=== PATIENT | female | born 1975 | race Caucasian/White ===

== ENCOUNTER → 2016-12-17 | Outpatient (CLI) | payer OTHER | END | disposition home or self-care (01) | LOC: LABWHC1 11:50 | PROVIDERS: ATTEND Obstetrics & Gynecology | DX: E28.2 Polycystic ovarian syndrome (principal) | CPT/HCPCS: 36415; 83001; 84439; 84443 ==

== ENCOUNTER → 2017-01-11 | Outpatient (CLI) | payer OTHER ==
--- NOTE | 2017-01-11 15:15 | FL ---
EXAMINATION TYPE: FL hysterosalpingography DATE OF EXAM: 01/11/2017 COMPARISON: CT abdomen and pelvis June 29, 2013 HISTORY: Infertility for 2 years. TECHNIQUE: Fluoroscopic assisted hysterosalpingogram. A total of 10 cc of Omnipaque 240 was utilized. 3 minutes of fluoroscopic time was utilized during procedure. 9 spot images were saved to PACS [email or web address] during procedure. FINDINGS: Preprocedure cover cutter image shows left-sided pelvic phlebolith inferiorly. Procedure was expla ined to patient. Benefits, alternatives, and risks were discussed. Using sterile technique speculum was inserted. Several attempts to pass catheter into cervix were ini tially unsuccessful as there is retroflexed or positioning of the cervical os. Finally cervical os is visualized after several attempts at repositioning. Cervical os was cleansed with Betadine. Catheter is inserted. Balloon is inflated. Under fluoroscopic guidance, contrast was instilled into the endometrial canal. Endometrium shows satisfactory opacific ation with slightly lobulated contour. Some leak of contrast into cervix is present. There is satisfa ctory visualization of bilateral fallopian tubes which appear within normal limits and eventual bilat eral spilling. At this point the balloon is deflated and catheter is withdrawn. Speculum was removed. Patient tolerated procedure well without any immediate complication. The patient was kept in the radi ology department for short stay after the procedure and then discharged home in stable condition. IMPRESSION: Successful, uncomplicated fluoroscopic assisted hysterosalpingogram. Bilateral tubal brooks ncy is documented.
--- NOTE | 2017-01-12 10:37 | MM ---
Reason for exam: screening (asymptomatic). Last mammogram was performed 2 years and 3 months ago. History: Patient is nulliparous. Benign excisional biopsy of the left breast, 2005. Taking progesterone for 6 years beginning at age 35. Physical Findings: A clinical breast exam by your physician is recommended on an annual basis and results should be correlated with mammographic findings. MG Screening Mammo w CAD Bilateral CC and MLO view(s) were taken. Prior study comparison: September 26, 2014, bilateral MG screening mammo w CAD. August 14, 2013, bilateral MG screening mammo w CAD. There are scattered fibroglandular densities. No significant changes when compared with prior studies. ASSESSMENT: Benign, BI-RAD 2 RECOMMENDATION: Routine screening mammogram of both breasts in 1 year.
== END | disposition home or self-care (01) ==
LOC: RADFLMAIN 13:18
PROVIDERS: ATTEND Obstetrics & Gynecology
DX: Z12.31 Encounter for screening mammogram for malignant neoplasm of breast (principal); N97.8 Female infertility of other origin
CPT/HCPCS: 58340; 74740; G0202; Q9966

== ENCOUNTER → 2017-05-03 | Outpatient (CLI) | payer OTHER ==
[2017-05-03 09:37] VITALS: BMI 48.8
== END | disposition home or self-care (01) ==
LOC: MNTWWP 09:10
PROVIDERS: ATTEND Internal Medicine Hematology & Oncology
DX: E66.3 Overweight (principal); Z68.42 Body mass index [BMI] 45.0-49.9, adult
CPT/HCPCS: 97802

== ENCOUNTER → 2017-06-14 | Outpatient (CLI) | payer OTHER ==
--- NOTE | 2017-06-14 16:40 | CONS ---
CONSULTATION REASON FOR EVALUATION: Sleep apnea. A 41-year-old female patient, obese who has gained about 30 pounds over the past 1 year as the patient has become more sedentary and less active. She used to live in [place], [place]. Currently she is in the [facility]. She has been working in [employer]. She is feeling tired and sleepy during the day. She snores at night. She is not sure if she quits any breathing or has any apneic episodes. No nocturia. She wakes up with dry mouth and she has occasional heartburn at nighttime. She goes to bed between 9:30 pm and 11:00 pm wakes up 6:30 am in the morning. The patient has been averaging around 6-7 hours of sleep. During the day she feels tired. She never got to the point where she would fall asleep while driving her car. No sleep paralysis. No hallucinations. No cataplexy. She admits to have had sleepiness or veered off the road while driving in the past 6 months and this is mainly when she was doing long distance driving between [place] and [facility]. As mentioned, no history of any motor vehicle accident. Otherwise no history of sleepwalking or sleep talking. No restlessness in lower extremities. No issues with chronic pain. No issues with chest pain or palpitations especially at nighttime. PAST MEDICAL HISTORY: Obesity, bronchial asthma, history of iron deficiency maintained on IV iron and history of anemia, degenerative arthritis. SURGICAL HISTORY: Includes cholecystectomy, tonsillectomy, appendectomy. DRUG ALLERGIES: Not known. Mainly seasonal allergies. OUTPATIENT MEDICATIONS: Include Lomotil, ProAir, Tylenol and omeprazole. SOCIAL HISTORY: The patient is a nonsmoker. No history of alcohol. No history of IV drugs. She drinks around 2-3 cups of coffee a day. FAMILY HISTORY: Negative for sleep apnea. REVIEW OF SYSTEMS: 12-point review of system was done. Positive findings are mentioned above in the history of present illness. Of significance is the absence of any anxiety or panic attacks. No depression, no palpitation. Occasional nocturnal heartburn. No depression. No claustrophobia. She is a nose breather. No falls, no trauma. No headaches in the morning. No cough or sputum production. No altered mentation. PHYSICAL EXAMINATION: BP is 134/84, pulse 89, respirations 16, temperature is 98.6, saturation 99% on room air. Grand Cane score is 5, weight is 254, height is 61 inches. Neck size is 16. BMI is 47.9. GENERAL APPEARANCE: Calm, comfortable. Head is normocephalic, atraumatic. Neck is short, yet supple and as mentioned Mallampati class II. No overbite, no micrognathia, no macroglossia. LUNGS: Clear to auscultation. HEART: Sounds regular rhythm. Normal S1, S2. No S3. No murmurs. ABDOMEN: Soft, nontender. No organomegaly. EXTREMITIES: No edema. No cyanosis or clubbing. NEUROLOGIC: The patient awake x3. No focal neurological deficit. PSYCHIATRIC: Negative for anxiety or depression. SKIN: Negative for any wounds or ulceration or cellulitis. IMPRESSION: 1. Obstructive sleep apnea clinically suspected, under investigation. 2. Chronic fatigue and sleepiness. Grand Cane score is at 5. 3. Loud snoring. 4. Obesity, BMI of 47.9, with an interval 30 pounds weight gain over the past 1 year. 5. Bronchial asthma. 6. Iron-deficiency anemia. 7. Degenerative arthritis. PLAN: 1. Encourage weight loss. 2. Patient carries good sleep hygiene measures. 3. Avoid driving especially when feeling drowsy or sleepy. 4. Proceed with a screening polysomnogram to assess for the presence of any form of sleep breathing disorder. We will treat the patient accordingly. MMODL / IJN: [id number] /
== END | disposition home or self-care (01) ==
LOC: SLEEP 14:04
PROVIDERS: ATTEND Internal Medicine Critical Care Medicine
DX: G47.8 Other sleep disorders (principal); R06.83 Snoring; R53.83 Other fatigue; E66.01 Morbid (severe) obesity due to excess calories; J45.901 Unspecified asthma with (acute) exacerbation; D50.9 Iron deficiency anemia, unspecified; M19.90 Unspecified osteoarthritis, unspecified site; J30.2 Other seasonal allergic rhinitis; Z79.899 Other long term (current) drug therapy; Z68.42 Body mass index [BMI] 45.0-49.9, adult
CPT/HCPCS: 99211

== ENCOUNTER → 2017-09-23 | Outpatient (CLI) | payer OTHER ==
--- NOTE | 2017-09-24 21:53 | CT ---
EXAMINATION TYPE: CT chest w con DATE OF EXAM: 09/23/2017 COMPARISON: NONE HISTORY: No chest complaints at time of service. Solitary pulmonary nodule. CT DLP: 439.1 mGycm. Automated Exposure Control for Dose Reduction was Utilized. TECHNIQUE: CT scan of the thorax is performed following with IV Contrast, patient injected with 100 mL of Isovue 300. FINDINGS: LUNGS: There is a 4 mm solid pulmonary nodule within the right upper lobe medially abutting the media stinum on series 4 image 28. Additionally within the right lung base there is a solid 1.4 cm well-cir cumscribed pulmonary nodule. No significant macroscopic fat is seen within this nodule. A 2 mm pulmon giuseppe nodule within the lingula is seen on series 4 image 40. No focal consolidation or pulmonary vascu lar congestion. There is no pleural effusion or pneumothorax seen. The tracheobronchial tree is pa tent. MEDIASTINUM: Within the superior anterior mediastinum there is an elongated opacity with more patchy opacity at its inferior margin favored to represent residual thymic tissue with adenopathy less likel y. No other evidence for enlarged mediastinal lymph node. No pericardial effusion is seen. Ascending thoracic aorta and main pulmonary artery are within normal limits of size. OTHER: Spleen is upper limits of normal measuring 13.3 cm in anterior posterior dimension. Gallbladde r surgically absent. Mild multilevel degenerative changes of the thoracic spine are present. IMPRESSION: 1. Bilateral pulmonary nodules with the largest measuring 1.4 cm in the right lower lobe. Given its s ize and lack of priors for comparison of stability. CT is recommended to ensure this is not hypermeta bolic although morphology favors more benign etiologies. 2. Soft tissue density of the superior anterior mediastinum favored to represent residual thymus alth ough this could also be evaluated with PET/CT. 3. Upper limits of normal size of the spleen.
== END | disposition home or self-care (01) ==
LOC: RADCTMAIN 16:17
PROVIDERS: ATTEND Family Medicine
DX: R91.8 Other nonspecific abnormal finding of lung field (principal); R93.8 Abnormal findings on diagnostic imaging of other specified body structures
CPT/HCPCS: 71260; Q9967

== ENCOUNTER → 2017-10-22 | Outpatient (CLI) | payer OTHER ==
--- NOTE | 2017-10-23 09:36 | PE ---
EXAMINATION TYPE: PET CT fusion skull to thigh DATE OF EXAM: 10/22/2017 COMPARISON: CT chest 09/23/2017 Prior PET/CT: None HISTORY: Solitary pulmonary nodule TECHNIQUE: Following the intravenous administration of 9.4 mCi of F-18 FDG, whole body images are pe rformed from the skull base to the midthigh. Images are reviewed on the computer in the coronal, axi al, and sagittal planes. Reconstructed rotating images are created on independent workstation and re viewed on the computer. A localization and attenuation correction CT is performed in conjunction wi th the PET scan. DLP: 412.27 mGycm SCAN: Initial Scan Blood glucose: 89 mg/dL Average Mediastinum SUV: 1.51 Average Liver SUV: 2.33 FINDINGS: NECK: There is some intense radiotracer accumulation within the left tonsillar pillar extending to j ust above the hyoid bone. Recommend direct visualization. THORAX: The nodule within the right lower lobe has an SUV value of 0.8. No significant uptake is evid ent. This is likely benign ABDOMEN: No abnormal uptake PELVIS: No abnormal uptake OSSEOUS STRUCTURES: There is increased radiotracer accumulation within vertebral bodies which is nons pecific. Intensity is in the range of 3 SUV. This may be focal changes, metastasis is not excluded. T here are additional scattered areas of uptake such as within the medial iliac wings within the sacrum , within the lumbar vertebral levels. Consider bone scan correlation. LOCALIZATION CT: A 1.3 cm nodule in the medial right lower lobe. CT is otherwise felt to be noncontri butory. Osseous structures appear unremarkable on CT examination. Note is made of some mild facet deg enerative changes lower lumbar spine. Suspicious lytic areas to correspond to the areas of uptake are not evident. COMPARISON: Lung nodule appears stable. No significant interval changes evident IMPRESSION: 1. Solitary pulmonary nodule without significant uptake can be compatible with a benign process. 2. Note is made of diffuse scattered areas of increased uptake within osseous structures. Metastasis without a primary site identification would be unlikely. Consider correlation with bone scan.
== END | disposition home or self-care (01) ==
LOC: RADPETMAIN 15:30
PROVIDERS: ATTEND Family Medicine
DX: R91.1 Solitary pulmonary nodule (principal)
CPT/HCPCS: 78815; A9552

== ENCOUNTER → 2017-11-01 | Outpatient (CLI) | payer OTHER ==
--- NOTE | 2017-11-01 18:22 | PN ---
PROGRESS NOTE Linda is 42, coming in for a discussion regarding her sleep apnea. The patient was suspected to have obstructive sleep apnea and she underwent a screening polysomnogram and she was found to have mild nonspecific BERT with an AHI of 5.1. I decided not to treat the patient. She decided to go with conservative weight watch. Since her last evaluation, the patient has been doing well. She has managed to lose about 25 pounds while was using [employer]. She is at the point where she is not having any sleepiness or tiredness during the day. She is able to drive long distances and she does not fall asleep while driving. Her iron levels have also improved, as the patient is being treated for iron-deficiency anemia by Dr. Hamm. Her Delmont score is down to 3. Her snoring has subsided. She is sleeping on her side. She is following very good sleep hygiene measures, as the patient is sleeping around 7 hours per night. PHYSICAL EXAMINATION: BP is 108/68, pulse 76, respirations 16, temperature 98.3. Saturation is 98% on room air. GENERAL APPEARANCE: Calm, comfortable. Head is atraumatic, normocephalic. Neck is short, supple. Crowding of the posterior pharynx. No goiter or neck masses. LUNGS: Clear to auscultation. HEART: Sounds are regular rate and rhythm. Normal S1, S2. No S3, S4. No murmurs. ABDOMEN: Soft, nontender. No organomegaly. EXTREMITIES: No edema. No cyanosis or clubbing. IMPRESSION: 1. Mild REM-specific obstructive sleep apnea with an AHI of 5.1. The patient is completely asymptomatic at this point, as the patient has lost around 25 pounds. 2. Iron deficiency anemia, treated. PLAN: 1. Continue losing more weight. 2. The patient has good sleep hygiene measures. 3. Clinically asymptomatic; there is no need for CPAP therapy at this point in time. MMODL / IJN: [id number] /
== END | disposition home or self-care (01) ==
LOC: SLEEP 16:34
PROVIDERS: ATTEND Internal Medicine Critical Care Medicine
DX: G47.33 Obstructive sleep apnea (adult) (pediatric) (principal); D50.9 Iron deficiency anemia, unspecified

== ENCOUNTER 2017-12-01 13:48 | Emergency (ER) | payer OTHER ==
[2017-12-01] MEDS ORDERED: SODIUM CHLORIDE 0.9% 500 ML IV STA (14:14)
[2017-12-01] MEDS ORDERED: KETOROLAC 30 MG/ML 1 ML VIAL IVP STA (14:14)
--- NOTE | 2017-12-01 14:20 | ED ---
General Adult HPI - General Chief complaint: Abdominal Pain Stated complaint: pain under ribs & back-sent by Time Seen by Provider: 12/01/17 13:50 Source: patient, RN notes reviewed Mode of arrival: ambulatory Limitations: no limitations - History of Present Illness Initial comments: This is a 42-year-old female presents emergency Department complaining of abdominal pain for 2 weeks. Patient states it started in her back just below her shoulder blades and now radiates under her ribs in the right upper quadrant. Patient states she has had a cholecystectomy and appendectomy. Patient denies any fever chills or cough. Patient denies any nausea vomiting but states she has had some episodes of diarrhea. Patient denies dysuria hematuria urinary frequency. Patient denies any lower abdominal pain. Patient denies any injury or trauma. Patient states the area is much worse now in the front and the back. Patient denies any shortness of breath or chest pain. However the patient states when she takes a deep breath it seems to make the pain a little worse. Patient denies any lightheadedness dizziness or near syncopal episode. - Related Data Home Medications Medication Instructions Recorded Confirmed Acetaminophen-Codeine 300-30mg 1 tab PO Q8H PRN 04/28/17 12/01/17 [Tylenol #3] Albuterol Sulfate [Proair Hfa] 1 - 2 puff INHALATION Q6HR PRN 04/28/17 12/01/17 Diphenox-Atrop 2.5-0.025 mg 2 tab PO QID PRN 04/28/17 12/01/17 [Lomotil] Omeprazole 40 mg PO DAILY 04/28/17 12/01/17 Buspar (Unknown Dose) 1 tab PO DAILY 12/01/17 12/01/17 Ibuprofen [Motrin Ib] 600 mg PO Q6H PRN 12/01/17 12/01/17 Allergies Allergy/AdvReac Type Severity Reaction Status Date / Time No Known Allergies Allergy Verified 12/01/17 14:15 Review of Systems ROS Statement: Those systems with pertinent positive or pertinent negative responses have been documented in the HPI. ROS Other: All systems not noted in ROS Statement are negative. Past Medical History Past Medical History: Asthma, GERD/Reflux Additional Past Medical History / Comment(s): colitis History of Any Multi-Drug Resistant Organisms: None Reported Past Surgical History: Appendectomy, Cholecystectomy, Tonsillectomy Past Psychological History: Anxiety Smoking Status: Never smoker Past Alcohol Use History: None Reported Past Drug Use History: None Reported General Exam - General Exam Comments Initial Comments: GENERAL: Patient is well-developed and well-nourished. Patient is nontoxic and well- hydrated and is in mild distress. ENT: Neck is soft and supple. No significant lymphadenopathy is noted. Oropharynx is clear. Moist mucous membranes. Neck has full range of motion without eliciting any pain. EYES: The sclera were anicteric and conjunctiva were pink and moist. Extraocular movements were intact and pupils were equal round and reactive to light. Eyelids were unremarkable. PULMONARY: Unlabored respirations. Good breath sounds bilaterally. No audible rales rhonchi or wheezing was noted. CARDIOVASCULAR: There is a regular rate and rhythm without any murmurs gallops or rubs. ABDOMEN: Mild right upper quadrant tenderness. No palpable organomegaly was noted. There is no palpable pulsatile mass. SKIN: Skin is clear with no lesions or rashes and otherwise unremarkable. NEUROLOGIC: Patient is alert and oriented x3. Cranial nerves II through XII are grossly intact. Motor and sensory are also intact. Normal speech, volume and content. Symmetrical smile. MUSCULOSKELETAL: Normal extremities with adequate strength and full range of motion. No lower extremity swelling or edema. No calf tenderness. LYMPHATICS: No significant lymphadenopathy is noted PSYCHIATRIC: Normal psychiatric evaluation. Normal interpersonal interactions appears functionally intact in deals appropriately with others. No signs of depression. No signs of anxiety. Limitations: no limitations Course Vital Signs 12/01/17 13:51 Temperature 98.2 F Pulse Rate 79 Respiratory 20 Rate Blood Pressure 130/87 O2 Sat by Pulse 99 Oximetry Medical Decision Making - Medical Decision Making I went back into reevaluate the patient she stated that the Toradol I gave her made her feel better. Patient states also when her rubs on her back does feel much better. Patient states she can follow-up with Paul Grossman - Lab Data Result diagrams: 12/01/17 14:30 12/01/17 14:30 Lab Results 12/01/17 12/01/17 12/01/17 Range/Units 14:30 14:30 14:30 WBC 13.7 H (3.8-10.6) k/uL RBC 5.72 H (3.80-5.40) m/uL Hgb 15.7 (11.4-16.0) gm/dL Hct 50.1 H (34.0-46.0) % MCV 87.6 (80.0-100.0) fL MCH 27.5 (25.0-35.0) pg MCHC 31.3 (31.0-37.0) g/dL RDW 13.3 (11.5-15.5) % Plt Count 227 (150-450) k/uL Neutrophils % 56 % Lymphocytes % 36 % Monocytes % 5 % Eosinophils % 1 % Basophils % 1 % Neutrophils # 7.6 (1.3-7.7) k/uL Lymphocytes # 4.9 H (1.0-4.8) k/uL Monocytes # 0.7 (0-1.0) k/uL Eosinophils # 0.1 (0-0.7) k/uL Basophils # 0.1 (0-0.2) k/uL Sodium 140 (137-145) mmol/L Potassium 3.9 (3.5-5.1) mmol/L Chloride 100 (98-107) mmol/L Carbon Dioxide 30 (22-30) mmol/L Anion Gap 10 mmol/L BUN 16 (7-17) mg/dL Creatinine 0.88 (0.52-1.04) mg/dL Est GFR (CKD-EPI)AfAm >90 (>60 ml/min/1.73 sqM) Est GFR (CKD-EPI)NonAf 82 (>60 ml/min/1.73 sqM) Glucose 82 (74-99) mg/dL Calcium 9.8 (8.4-10.2) mg/dL Total Bilirubin 0.5 (0.2-1.3) mg/dL AST 42 H (14-36) U/L ALT 46 (9-52) U/L Alkaline Phosphatase 67 (38-126) U/L Total Protein 8.0 (6.3-8.2) g/dL Albumin 4.5 (3.5-5.0) g/dL Amylase 67 (30-110) U/L Lipase 152 (23-300) U/L Urine Color Colorless Urine Appearance Clear (Clear) Urine pH 6.5 (5.0-8.0) Ur Specific Shelburn 1.001 (1.001-1.035) Urine Protein Negative (Negative) Urine Glucose (UA) Negative (Negative) Urine Ketones Negative (Negative) Urine Blood Negative (Negative) Urine Nitrite Negative (Negative) Urine Bilirubin Negative (Negative) Urine Urobilinogen <2.0 (<2.0) mg/dL Ur Leukocyte Esterase Negative (Negative) Disposition Clinical Impression: Abdominal pain Disposition: HOME SELF-CARE Instructions: Abdominal Pain (ED) Is patient prescribed a controlled substance at d/c from ED?: No Referrals: Gerry Grossman MD [Primary Care Provider] - 1-2 days Time of Disposition: 15:33
[2017-12-01 14:45] LABS: Appearance,Urine Clear (Clear); Bilirubin,Urine Negative (Negative); Blood,Urine Negative (Negative); Color,Urine Colorless; Glucose,Urine (UA) Negative (Negative); Ketones,Urine Negative (Negative); Leukocyte Esterase,Urine Negative (Negative); Nitrite,Urine Negative (Negative); PH, Urine 6.5 (5.0-8.0); Protein,Urine Negative (Negative); Specific Gravity,Urine 1.001 (1.001-1.035); Urobilinogen,Urine <2.0 mg/dL (<2.0)
[2017-12-01 14:46] LABS: Basophils # (A) 0.1 k/uL (0-0.2); Basophils % (A) 1 %; Eosinophils # (A) 0.1 k/uL (0-0.7); Eosinophils % (A) 1 %; HCT 50.1 % (34.0-46.0); HGB 15.7 gm/dL (11.4-16.0); Lymphocytes # (A) 4.9 k/uL (1.0-4.8); Lymphocytes % (A) 36 %; MCH 27.5 pg (25.0-35.0); MCHC 31.3 g/dL (31.0-37.0); MCV 87.6 fL (80.0-100.0); Mean Platelet Volume 6.8; Monocytes # (A) 0.7 k/uL (0-1.0); Monocytes % (A) 5 %; Neutrophils # (A) 7.6 k/uL (1.3-7.7); Neutrophils % (A) 56 %; Platelet Count 227 k/uL (150-450); RBC 5.72 m/uL (3.80-5.40); RDW 13.3 % (11.5-15.5); WBC 13.7 k/uL (3.8-10.6)
[2017-12-01 14:54] LABS: ALT 46 U/L (9-52); AST 42 U/L (14-36); Albumin 4.5 g/dL (3.5-5.0); Alkaline Phosphatase 67 U/L (38-126); Amylase 67 U/L (30-110); Anion Gap 10 mmol/L; Blood Urea Nitrogen 16 mg/dL (7-17); Calcium 9.8 mg/dL (8.4-10.2); Carbon Dioxide 30 mmol/L (22-30); Chloride 100 mmol/L (98-107); Glucose 82 mg/dL (74-99); Lipase 152 U/L (23-300); Potassium 3.9 mmol/L (3.5-5.1); Sodium 140 mmol/L (137-145); Total Bilirubin 0.5 mg/dL (0.2-1.3)
--- NOTE | 2017-12-01 15:06 | XR ---
EXAMINATION TYPE: XR KUB DATE OF EXAM: 12/01/2017 2:59 PM CLINICAL HISTORY: Right-sided pain with nausea and diarrhea. TECHNIQUE: Two Upright KUB images of the abdomen are obtained. COMPARISON: CT abdomen and pelvis June 29, 2013. FINDINGS: Scattered gas is seen in non-distended stomach and small bowel loops. Gas is seen in non-di stended colon. Cholecystectomy clips are present. No pneumoperitoneum is seen. Lung bases are clear. IMPRESSION: Overall nonobstructive bowel gas pattern.
[2017-12-01 15:43] VITALS: BP 129/65; PULSE 68; RESP 18; TEMP 97.5
== END 2017-12-01 15:41 | disposition home or self-care (01) ==
LOC: EC 13:48
DX: R10.11 Right upper quadrant pain (principal); M54.6 Pain in thoracic spine; R19.7 Diarrhea, unspecified; J45.909 Unspecified asthma, uncomplicated; K21.9 Gastro-esophageal reflux disease without esophagitis; F41.9 Anxiety disorder, unspecified; Z79.899 Other long term (current) drug therapy; Z90.49 Acquired absence of other specified parts of digestive tract
CPT/HCPCS: 99284; 96374; 36415; 80053; 82150; 83690; 85025; 81003; 74018; J1885

== ENCOUNTER → 2018-03-27 | Outpatient (CLI) | payer OTHER ==
--- NOTE | 2018-04-02 10:31 | MM ---
Reason for exam: screening (asymptomatic). Last mammogram was performed 1 year and 2 months ago. History: Patient is nulliparous. Benign excisional biopsy of the left breast, 2005. Taking progesterone for 7 years beginning at age 35. MG Screening Mammo w CAD Bilateral CC and MLO view(s) were taken. Prior study comparison: January 11, 2017, bilateral MG screening mammo w CAD. September 26, 2014, bilateral MG screening mammo w CAD. There are scattered fibroglandular densities. No significant changes when compared with prior studies. ASSESSMENT: Negative, BI-RAD 1 RECOMMENDATION: Routine screening mammogram of both breasts in 1 year.
== END | disposition home or self-care (01) ==
LOC: RADMAMWWP 16:22
PROVIDERS: ATTEND Obstetrics & Gynecology
DX: Z12.31 Encounter for screening mammogram for malignant neoplasm of breast (principal)
CPT/HCPCS: 77067

== ENCOUNTER → 2019-02-08 | Outpatient (CLI) | payer OTHER ==
--- NOTE | 2019-02-08 17:11 | US ---
EXAMINATION TYPE: US OB <= 14 wks transvag DATE OF EXAM: 02/08/2019 4:38 PM COMPARISON: NONE CLINICAL HISTORY: O00.1 Ectopic . Irregular periods HCG 111 on 02/05 2- EXAM PERFORMED: Transvaginal (TV) and Transabdominal (TA) EXAM MEASUREMENTS: GESTATIONAL AGE / DATING Physician Established: not established Dates by LMP: (9 weeks/4 days) EDC: 09/09/19 MATERNAL ANATOMY Uterus: 8.3 x 4.9 x 5.2 cm small nabothian cysts 0.9 x 0.7 x 0.8 cm, 0.6 x 0.9 x x0.5 cm Right Ovary: 2.7 x 1.6 x 2.2 Left Ovary: 2.7 x 1.9 x 2.8 Post CDS / Adnexa: wnl Presence of free fluid: no Presence of corpus luteal cyst: no Presence of subchorionic bleed: no GESTATION / SURVEY MSD: 1.1 x 0.3 x 0.2 cm) to small for EDC. Date of LMP: 12/03 2018 Beta HcG (if available): 111 IMPRESSION: There is appears to be tiny intrauterine gestational sac. Follow-up recommended in 14 days to confirm a living fetus. No adnexal mass. MTDD
== END ==
LOC: RADUSWWP 15:41
PROVIDERS: ATTEND Obstetrics & Gynecology
DX: R10.2 Pelvic and perineal pain (principal)
CPT/HCPCS: 36415; 76801; 76817; 84702; 86850; 86900; 86901

== ENCOUNTER → 2019-02-10 | Outpatient (CLI) | payer OTHER ==
[2019-02-10 11:47] LABS: HCT 45.2 % (34.0-46.0); HGB 14.3 gm/dL (11.4-16.0); MCH 28.5 pg (25.0-35.0); MCHC 31.6 g/dL (31.0-37.0); MCV 90.1 fL (80.0-100.0); Mean Platelet Volume 6.6; Platelet Count 234 k/uL (150-450); RBC 5.02 m/uL (3.80-5.40); WBC 10.2 k/uL (3.8-10.6)
[2019-02-10 11:49] LABS: Appearance,Urine Cloudy (Clear); Bilirubin,Urine Negative (Negative); Blood,Urine Negative (Negative); Color,Urine Light Yellow; Glucose,Urine (UA) Negative (Negative); Ketones,Urine Negative (Negative); Leukocyte Esterase,Urine Negative (Negative); Nitrite,Urine Negative (Negative); Protein,Urine Negative (Negative); RBC,Urine 3 /hpf (0-5); Specific Gravity,Urine 1.004 (1.001-1.035); Squamous Epithelial Cell,Urine 1 /hpf (0-4); Urobilinogen,Urine <2.0 mg/dL (<2.0); WBC,Urine 1 /hpf (0-5)
[2019-02-10 16:46] LABS: % Iron Saturation 27.41 (12.00-45.00); African American GFR (CKD) 105.4 (60.0-200.0); Albumin 4.4 g/dL (3.80-4.90); Albumin/Globulin Ratio 2.2 (1.60-3.17); Anion Gap 7.4 mmol/L (4.00-12.00); BUN/Creat Ratio 7.5 Ratio (12.00-20.00); Calcium 9.9 mg/dL (8.7-10.3); Carbon Dioxide 28.6 mmol/L (21.6-31.8); Chol/HDL Ratio 5.35; LDL Cholesterol,Calculated 142.2 mg/dL (0.0-131.0); Non-African American GFR(CKD) 90.9 (60.0-200.0); Potassium 4.4 mmol/L (3.5-5.5); Total Bilirubin 0.3 mg/dL (0.2-1.2); Total Protein 6.4 g/dL (6.2-8.2); VLDL Calculation 31.8 mg/dL (5.00-40.00)
[2019-02-10 16:55] LABS: HCG,Quantitative Serum 251.6 mIU/mL
[2019-02-10 17:01] LABS: Ferritin 343.3 ng/mL (10.0-291.0)
== END | disposition home or self-care (01) ==
LOC: LABWHC1 11:12
PROVIDERS: ATTEND Family Medicine
DX: Z00.00 Encounter for general adult medical examination without abnormal findings (principal); D50.9 Iron deficiency anemia, unspecified
CPT/HCPCS: 36415; 80053; 80061; 81001; 82607; 82728; 82747; 83540; 83550; 84702; 85027

== ENCOUNTER 2019-02-19 10:24 | Emergency (ER) | payer OTHER ==
[2019-02-19 10:39] VITALS: TEMP 98.1
--- NOTE | 2019-02-19 10:56 | ED ---
Female Urogenital HPI - General Chief complaint: Vaginal Bleeding Stated complaint: 6 wks preg/vaginal bleeding Time Seen by Provider: 02/19/19 10:41 Source: patient Mode of arrival: ambulatory Limitations: no limitations - History of Present Illness Initial comments: Patient is a 43-year-old female presenting to the emergency Department with complaints of vaginal bleeding and cramping that started early this morning. Patient states she is approximately 6 weeks . Patient is . Patient's SHIP CAPTAIN is Dr. Viera. Patient states for the last 2 days she's had some brownish spotting but then this morning the spotting has increased and it is now bright red and clotting. Patient is also having some increase in her abdominal cramping. Patient does admit to nausea but she has been nauseous for the last few weeks. Patient denies fever, chills, vomiting. Patient states she had an ultrasound performed 2 weeks ago because they thought she might be ectopic . Ectopic was ruled out however too early to identify a live IUP. Patient has no other complaints at this time. Upon arrival to the ER, vital signs are stable. - Related Data Home Medications Medication Instructions Recorded Confirmed Acetaminophen-Codeine 300-30mg 1 tab PO Q8H PRN 04/28/17 12/21/18 [Tylenol #3] Albuterol Sulfate [Proair Hfa] 1 - 2 puff INHALATION Q6HR PRN 04/28/17 12/21/18 Diphenox-Atrop 2.5-0.025 mg 2 tab PO QID PRN 04/28/17 12/21/18 [Lomotil] Omeprazole 40 mg PO DAILY 04/28/17 12/21/18 Ibuprofen [Motrin Ib] 600 mg PO Q6H PRN 12/01/17 12/21/18 Sertraline [Zoloft] 50 mg PO DAILY 12/21/18 12/21/18 metFORMIN HCL ER [Glucophage Xr] 500 mg PO DAILY 12/21/18 12/21/18 Allergies Allergy/AdvReac Type Severity Reaction Status Date / Time No Known Allergies Allergy Verified 02/19/19 10:36 Review of Systems ROS Statement: Those systems with pertinent positive or pertinent negative responses have been documented in the HPI. ROS Other: All systems not noted in ROS Statement are negative. Past Medical History Past Medical History: Asthma, GERD/Reflux Additional Past Medical History / Comment(s): colitis History of Any Multi-Drug Resistant Organisms: None Reported Past Surgical History: Appendectomy, Cholecystectomy, Tonsillectomy Past Psychological History: Anxiety Smoking Status: Never smoker Past Alcohol Use History: None Reported Past Drug Use History: None Reported General Exam - General Exam Comments Initial Comments: GENERAL: Well-appearing, well-nourished and in no acute distress. HEAD: Atraumatic, normocephalic. EYES: Pupils equal round and reactive to light, extraocular movements intact, sclera anicteric, conjunctiva are normal. ENT: TMs normal, nares patent, oropharynx clear without exudates. Moist mucous membranes. NECK: Normal range of motion, supple without lymphadenopathy or JVD. LUNGS: Breath sounds clear to auscultation bilaterally and equal. No wheezes rales or rhonchi. HEART: Regular rate and rhythm without murmurs, rubs or gallops. ABDOMEN: Soft, nontender, normoactive bowel sounds. No guarding, no rebound. No masses appreciated. : Deferred, declined. EXTREMITIES: Normal range of motion, no pitting or edema. No clubbing or cyanosis. NEUROLOGICAL: Cranial nerves II through XII grossly intact. Normal speech, normal gait. PSYCH: Normal mood, normal affect. SKIN: Warm, Dry, normal turgor, no rashes or lesions noted. Limitations: no limitations Course Vital Signs 02/19/19 02/19/19 10:37 13:23 Temperature 98.1 F Pulse Rate 95 71 Respiratory 18 16 Rate Blood Pressure 119/83 145/76 O2 Sat by Pulse 99 99 Oximetry Medical Decision Making - Medical Decision Making Patient is a 43-year-old female presenting with vaginal spotting as well as lower abdominal cramping. Patient currently 6 weeks . . Patient's SHIP CAPTAIN is Dr. Viera. Lab work shows no acute abnormalities. HCG Mahendra is 689 today. 2 weeks ago it was 251. OB ultrasound shows abnormally thickened endometrium without visualization of an IUP. Differential is evolving spontaneous however retained products of conception and ectopic are possibilities. Patient declined vaginal exam at this time. Dr. Viera was consulted and she is okay with patient being seen in the office on Tuesday. Patient is stable for discharge at this time and patient is agreement with this plan of care. Return parameters were discussed with the patient she verbalized understanding. Case discussed with Dr. Arguelles. - Lab Data Result diagrams: 02/19/19 11:10 02/19/19 11:10 Lab Results 02/19/19 02/19/19 02/19/19 Range/Units 11:10 11:10 11:11 WBC 12.2 H (3.8-10.6) k/uL RBC 5.10 (3.80-5.40) m/uL Hgb 15.0 (11.4-16.0) gm/dL Hct 45.2 (34.0-46.0) % MCV 88.8 (80.0-100.0) fL MCH 29.5 (25.0-35.0) pg MCHC 33.2 (31.0-37.0) g/dL RDW 13.9 (11.5-15.5) % Plt Count 246 (150-450) k/uL Neutrophils % 68 % Lymphocytes % 23 % Monocytes % 5 % Eosinophils % 2 % Basophils % 1 % Neutrophils # 8.3 H (1.3-7.7) k/uL Lymphocytes # 2.8 (1.0-4.8) k/uL Monocytes # 0.6 (0-1.0) k/uL Eosinophils # 0.2 (0-0.7) k/uL Basophils # 0.1 (0-0.2) k/uL Sodium 137 (137-145) mmol/L Potassium 4.5 (3.5-5.1) mmol/L Chloride 101 (98-107) mmol/L Carbon Dioxide 26 (22-30) mmol/L Anion Gap 10 mmol/L BUN 6 L (7-17) mg/dL Creatinine 0.73 (0.52-1.04) mg/dL Est GFR (CKD-EPI)AfAm >90 (>60 ml/min/1.73 sqM) Est GFR (CKD-EPI)NonAf >90 (>60 ml/min/1.73 sqM) Glucose 90 (74-99) mg/dL Calcium 10.5 H (8.4-10.2) mg/dL Total Bilirubin 0.3 (0.2-1.3) mg/dL AST 29 (14-36) U/L ALT 27 (9-52) U/L Alkaline Phosphatase 66 (38-126) U/L Total Protein 7.7 (6.3-8.2) g/dL Albumin 4.5 (3.5-5.0) g/dL HCG, Quant 689.8 mIU/mL Blood Type A Positive Blood Type Recheck A Pos Bld Type Recheck Status No Disposition Clinical Impression: Threatened Disposition: HOME SELF-CARE Condition: Stable Instructions (If sedation given, give patient instructions): Miscarriage (ED) Additional Instructions: Please return to the Emergency Department if symptoms worsen or any other concerns. Follow-up with Dr. Viera on Tuesday as discussed. Is patient prescribed a controlled substance at d/c from ED?: No Referrals: Gerry Grossman MD [Primary Care Provider] - 1-2 days
[2019-02-19 11:35] LABS: Basophils # (A) 0.1 k/uL (0-0.2); Basophils % (A) 1 %; Eosinophils # (A) 0.2 k/uL (0-0.7); Eosinophils % (A) 2 %; HCT 45.2 % (34.0-46.0); Lymphocytes # (A) 2.8 k/uL (1.0-4.8); Lymphocytes % (A) 23 %; MCH 29.5 pg (25.0-35.0); MCHC 33.2 g/dL (31.0-37.0); MCV 88.8 fL (80.0-100.0); Mean Platelet Volume 5.9; Monocytes # (A) 0.6 k/uL (0-1.0); Monocytes % (A) 5 %; Neutrophils # (A) 8.3 k/uL (1.3-7.7); Neutrophils % (A) 68 %; Platelet Count 246 k/uL (150-450); RDW 13.9 % (11.5-15.5); WBC 12.2 k/uL (3.8-10.6)
[2019-02-19 11:39] LABS: ALT 27 U/L (9-52); AST 29 U/L (14-36); African American GFR (CKD) >90 (>60 ml/min/1.73 sqM); Albumin 4.5 g/dL (3.5-5.0); Alkaline Phosphatase 66 U/L (38-126); Anion Gap 10 mmol/L; Blood Urea Nitrogen 6 mg/dL (7-17); Calcium 10.5 mg/dL (8.4-10.2); Carbon Dioxide 26 mmol/L (22-30); Chloride 101 mmol/L (98-107); Glucose 90 mg/dL (74-99); Non-African American GFR(CKD) >90 (>60 ml/min/1.73 sqM); Potassium 4.5 mmol/L (3.5-5.1); Sodium 137 mmol/L (137-145); Total Bilirubin 0.3 mg/dL (0.2-1.3); Total Protein 7.7 g/dL (6.3-8.2)
[2019-02-19 11:55] LABS: HCG,Quantitative Serum 689.8 mIU/mL
--- NOTE | 2019-02-19 12:13 | US ---
EXAMINATION TYPE: Transabdominal DATE OF EXAM: 02/19/2019 11:53 AM COMPARISON: US 2018 CLINICAL HISTORY: spotting, cramping . Pelvic pain and bleeding x 5 days, 2, miscarriage 1 EXAM PERFORMED: Transvaginal (TV) and Transabdominal (TA) EXAM MEASUREMENTS: GESTATIONAL AGE / DATING Physician Established: Not established yet Dates by LMP: Patient unsure Dates by First Scan: Not able to date from first scan Dates by Current Scan for: No IUP seen at this time MATERNAL ANATOMY Uterus: 8.9 x 5.1 x 5.1cm, thickened heterogeneous endometrium Right Ovary: 2.2 x 0.9 x 2.1cm Left Ovary: 2.5 x 1.9 x 2.7cm Post CDS / Adnexa: wnl Presence of free fluid: no Presence of corpus luteal cyst: left ovary: 0.9 x 0.8 x 1.6cm Presence of subchorionic bleed: no GESTATION / SURVEY No IUP seen at this time Date of LMP: Patient unsure Beta HcG (if available): Not available at time of exam IMPRESSION: Abnormally thickened endometrium without visualization of an intrauterine gestation at th is time. Primary differential is for evolving spontaneous given the previous ultrasound find ings of 02/08/2019 in the clinical history. However given the thickened endometrium retained products of conception and ectopic are possibilities and correlation with serum serial beta hCGs is recommended.
[2019-02-19 13:24] VITALS: BP 145/76; PULSE 71; RESP 16
== END 2019-02-19 13:23 | disposition home or self-care (01) ==
LOC: EC 10:24
DX: O20.0 Threatened abortion (principal); O99.89 Other specified diseases and conditions complicating pregnancy, childbirth and the puerperium; R11.0 Nausea; O99.511 Diseases of the respiratory system complicating pregnancy, first trimester; J45.909 Unspecified asthma, uncomplicated; O99.611 Diseases of the digestive system complicating pregnancy, first trimester; K21.9 Gastro-esophageal reflux disease without esophagitis; O99.341 Other mental disorders complicating pregnancy, first trimester; F41.9 Anxiety disorder, unspecified; Z79.84 Long term (current) use of oral hypoglycemic drugs; Z79.899 Other long term (current) drug therapy; Z90.49 Acquired absence of other specified parts of digestive tract; Z3A.01 Less than 8 weeks gestation of pregnancy; Z53.20 Procedure and treatment not carried out because of patient's decision for unspecified reasons
CPT/HCPCS: 36415; 76801; 76817; 80053; 84702; 85025; 86900; 86901; 99284

== ENCOUNTER → 2019-02-21 | Outpatient (CLI) | payer OTHER | END | disposition home or self-care (01) | LOC: LABWHC1 11:51 | PROVIDERS: ATTEND Obstetrics & Gynecology | DX: Z53.9 Procedure and treatment not carried out, unspecified reason (principal) ==

== ENCOUNTER 2019-02-22 05:47 | Day surgery (SDC) | payer OTHER ==
[2019-02-21 13:09] LABS: Basophils % (A) 0 %; Eosinophils # (A) 0.2 k/uL (0-0.7); Eosinophils % (A) 2 %; HCT 43.2 % (34.0-46.0); HGB 14.3 gm/dL (11.4-16.0); Lymphocytes # (A) 2.4 k/uL (1.0-4.8); Lymphocytes % (A) 23 %; MCH 29.5 pg (25.0-35.0); MCHC 33.2 g/dL (31.0-37.0); MCV 89.1 fL (80.0-100.0); Monocytes # (A) 0.4 k/uL (0-1.0); Monocytes % (A) 4 %; Neutrophils # (A) 7.3 k/uL (1.3-7.7); Neutrophils % (A) 70 %; Platelet Count 228 k/uL (150-450); RBC 4.85 m/uL (3.80-5.40); RDW 13.7 % (11.5-15.5); WBC 10.4 k/uL (3.8-10.6)
[2019-02-21 14:28] VITALS: BMI 43.0
[~2019-02-22 05:47] MED LIST: LACTATED RINGERS 1,000 ML IV SCH; ONDANSETRON 4 MG/2 ML VIAL IVP PRN; Pre Op ABX Message 1 EACH MISC MISCELLANE ONE
[2019-02-22] MEDS ORDERED: LIDOCAINE 1% 20 ML VIAL (10MG/ML) FOR IV START INTRADERMA ONE (06:30)
[2019-02-22] MEDS ORDERED: DEXAMETHASONE SOD PHOSPHATE 10 MG/ML 1 ML VIAL IV ONE (06:35)
[2019-02-22 06:42] LABS: Glucose,Whole Blood 94 mg/dL (75-99)
[2019-02-22 06:45] VITALS: RESP 16
[2019-02-22] MEDS ORDERED: diphenhydrAMINE 50 MG/ML 1 ML VIAL ONE (06:57)
[2019-02-22] MEDS ORDERED: SUCCINYLCHOLINE CHLORIDE 100 MG/5 ML SYR IV ONE (06:57)
[2019-02-22] MEDS ORDERED: LIDOCAINE 1% INJ 10MG/ML (20 ML MDV) ONE (06:57)
[2019-02-22] MEDS ORDERED: MIDAZOLAM 2 MG/2 ML VIAL ONE (06:57)
[2019-02-22] MEDS ORDERED: KETOROLAC 30 MG/ML 1 ML VIAL ONE (06:57)
[2019-02-22] MEDS ORDERED: fentaNYL (PF) 50 MCG/ML 2 ML AMP ONE (06:57)
[2019-02-22] MEDS ORDERED: PROPOFOL 10 MG/ML 20 ML VIAL IV ONE (06:57)
--- NOTE | 2019-02-22 07:26 | P.OP ---
Date of Procedure: 02/22/19 Preoperative Diagnosis: Missed AB, Rh+, advanced maternal age Postoperative Diagnosis: Same Procedure(s) Performed: Suction dilatation and curettage of the uterine cavity Anesthesia: GAGAN Surgeon: Larisa Viera Estimated Blood Loss (ml): 50 IV fluids (ml): 400 Urine output (ml): 50 Pathology: other (Uterine curettings) Condition: stable Disposition: PACU Description of Procedure: Patient is brought to the operating suite and placed in the dorsal lithotomy position. A general anesthetic is administered without difficulty. The appropriate timeout is performed to assure proper patient and procedural identification. Examination under anesthesia reveals an anteverted uterus of approximately 6-8 weeks size, negative adnexa bilaterally. Bladder is drained for approximately 50 mL of clear yellow urine. The cervix, vagina, perineal body are all prepped and draped in usual sterile fashion. Weighted speculum was placed into the vagina. Anterior lip of the cervix is grasped with an Allis clamp. Uterus sounds to a depth of 10 cm. The cervix was gently and systematically dilated using Hanks dilators. A #8 curved curet is placed to the dome of the fundus and the suction apparatus is attached. Under appropriate pressures, the cavity is curettaged thoroughly for a moderate amount of dark-appearing tissue. A medium sharp curette is used to assure that no retained products of conception are remaining. The suction catheter was once again placed and the cavity is noted to be completely evacuated. Instrumentation is removed from the vagina. All sponge needle and instrument counts are correct at the end of the procedure. Patient is brought back to the recovery room in very good condition with stable vital signs including a pulse of 71, blood pressure 156/91, 97% O2 saturation. Toradol is given prior to leav ing the operative suite. Patient will follow-up with me in the office in 2 weeks.
[2019-02-22 07:34] VITALS: TEMP 97.2
[2019-02-22] MEDS: HYDROmorphone 0.5 MG/0.5 ML SYRINGE IVP PRN ×2 (07:47→07:56)
[2019-02-22 08:54] VITALS: BP 132/78; PULSE 90
--- NOTE | 2019-02-27 14:13 | CDI ---
Date: 02.27.19 CDS/Animal Care Giver Name: Veronica Barber Phone: If any questions, call [facility] Social Worker at [phone] Pt Name: Linda Herndon Adm Date: 02.22.19 Dis Date: 02.22.19 Attention: The [facility] Coding Staff appreciate your assistance in clarifying documentation. Please respond to the clarification below the line at the bottom and electronically sign. The [facility] Coding Staff will review the response and follow up if needed. Please note: Queries are made part of the Legal Health Record. If you have any questions, please contact the Community Mental Health Social Worker. Dear Dr. Viera: The adm/principal dx on the H&P and path report (clinical hx) has incomplete AB, whereas the OP note has missed AB. And the path report says 'no product of conception was found' for the final pathological dx. Please clarify if a missed ( is lost and the product of conception do not leave the body) or incomplete (some of the products of conception leave the body) Thank you for your kind consideration. Diagnosis is incomplete Ab. Patient had been bleeding through the night prior to surgery and likely passed the remaining tissue at home, thereby no products of conception were noted per pathology. The preoperative diagnosis however remains incomplete Ab. Thank you. MTDD
== END 2019-02-22 09:03 | disposition home or self-care (01) ==
LOC: OR 05:47
PROVIDERS: ATTEND Obstetrics & Gynecology
DX: O03.4 Incomplete spontaneous abortion without complication (principal); O09.529 Supervision of elderly multigravida, unspecified trimester; J45.909 Unspecified asthma, uncomplicated; M54.30 Sciatica, unspecified side; F41.9 Anxiety disorder, unspecified; F32.9 Major depressive disorder, single episode, unspecified; K21.9 Gastro-esophageal reflux disease without esophagitis; Z86.19 Personal history of other infectious and parasitic diseases; Z87.42 Personal history of other diseases of the female genital tract; Z88.8 Allergy status to other drugs, medicaments and biological substances; Z88.5 Allergy status to narcotic agent; Z87.442 Personal history of urinary calculi; Z90.49 Acquired absence of other specified parts of digestive tract; Z98.890 Other specified postprocedural states; Z90.89 Acquired absence of other organs; Z79.899 Other long term (current) drug therapy; Z79.84 Long term (current) use of oral hypoglycemic drugs; Z79.890 Hormone replacement therapy; Z87.59 Personal history of other complications of pregnancy, childbirth and the puerperium; Z81.8 Family history of other mental and behavioral disorders; Z84.89 Family history of other specified conditions; Z83.3 Family history of diabetes mellitus; Z83.49 Family history of other endocrine, nutritional and metabolic diseases; Z83.79 Family history of other diseases of the digestive system; Z83.42 Family history of familial hypercholesterolemia; Z80.9 Family history of malignant neoplasm, unspecified
CPT/HCPCS: 59812; 86900; 86901; 88305; 85025; 86850; 36415; J2250; J1200; J1100; J2405; J2001; J3010; J1885; J0330; J2704; J1170

== ENCOUNTER → 2019-03-01 | Outpatient (CLI) | payer OTHER ==
[2019-03-01 17:32] LABS: HCT 44.4 % (34.0-46.0); MCH 28.4 pg (25.0-35.0); MCHC 31.6 g/dL (31.0-37.0); MCV 89.7 fL (80.0-100.0); Platelet Count 211 k/uL (150-450); RBC 4.95 m/uL (3.80-5.40); RDW 14.2 % (11.5-15.5); WBC 10.3 k/uL (3.8-10.6)
== END | disposition home or self-care (01) ==
LOC: LABWHC1 16:49
PROVIDERS: ATTEND Obstetrics & Gynecology
DX: O02.1 Missed abortion (principal); R53.83 Other fatigue
CPT/HCPCS: 36415; 84702; 85027

== ENCOUNTER → 2021-04-20 | Outpatient (CLI) | payer BC ==
--- NOTE | 2021-04-20 17:14 | XR ---
EXAMINATION TYPE: XR chest 2V DATE OF EXAM: 04/20/2021 COMPARISON: None HISTORY: 45 year-old female R05.9, cough for 2 weeks TECHNIQUE: Frontal and lateral views FINDINGS: The cardiomediastinal silhouette, aorta, and pulmonary vasculature are within normal limits. Strandy atelectasis in the lower lungs. Otherwise, lungs and pleural spaces are clear. IMPRESSION: No acute cardiopulmonary process.
== END | disposition home or self-care (01) ==
LOC: RADXRMAIN 15:37
PROVIDERS: ATTEND Physician Assistant
DX: R05.9 Cough, unspecified (principal)
CPT/HCPCS: 71046

== ENCOUNTER → 2021-05-26 | Outpatient (CLI) | payer BC ==
--- NOTE | 2021-05-27 11:04 | MM ---
Reason for exam: screening (asymptomatic). Last mammogram was performed 3 years and 2 months ago. History: Patient is nulliparous. Benign excisional biopsy of the left breast, 2006. Took progesterone for 7 years beginning at age 35. Physical Findings: A clinical breast exam by your physician is recommended on an annual basis and results should be correlated with mammographic findings. MG 3D Screening Mammo W/Cad Bilateral CC and MLO view(s) were taken. Prior study comparison: March 27, 2018, bilateral MG screening mammo w CAD. January 11, 2017, bilateral MG screening mammo w CAD. There are scattered fibroglandular densities. There is no discrete abnormality. No significant changes when compared with prior studies. ASSESSMENT: Negative, BI-RAD 1 RECOMMENDATION: Routine screening mammogram of both breasts in 1 year.
== END | disposition home or self-care (01) ==
LOC: RADMAMWWP 16:16
PROVIDERS: ATTEND Obstetrics & Gynecology
DX: Z12.31 Encounter for screening mammogram for malignant neoplasm of breast (principal)
CPT/HCPCS: 77063; 77067

== ENCOUNTER → 2022-07-26 | Outpatient (CLI) | payer BC ==
--- NOTE | 2022-07-27 16:05 | MM ---
Reason for Exam: Screening (asymptomatic). Last mammogram was performed 1 year(s) and 2 month(s) ago. Patient History: Menarche at age 11. Patient has no children. Progesterone, starting at age 35 for 7 years. 2005, Benign Excisional Biopsy on the left side. Last menstrual period: 07/03/2022 Risk Values: Annamarie 5 year model risk: 1.6%. NCI Lifetime model risk: 13.9%. Prior Study Comparison: 01/11/2017 Bilateral Screening Mammogram, [facility]. 03/27/2018 Bilateral Screening Mammogram, [facility]. 05/26/2021 Bilateral Screening Mammogram, [facility]. Tissue Density: There are scattered fibroglandular densities. Findings: Analyzed By CAD. Pattern appears symmetrical and stable. No significant interval change is evident. No suspicious groups of microcalcifications, spiculated or lobular masses, architectural distortion or other secondary signs of malignancy are mammographically apparent. Overall Assessment: Benign, BI-RAD 2 Management: Screening Mammogram of both breasts in 1 year. A negative mammogram report should not preclude additional follow up of suspicious palpable abnormalities. Patient should continue monthly self breast exam. A clinical breast exam by your physician is recommended on an annual basis and results should be correlated with mammographic findings. Electronically signed and approved by: Delroy Alva D.O. Radiologis
== END | disposition home or self-care (01) ==
LOC: RADMAMWWP 16:48
PROVIDERS: ATTEND Obstetrics & Gynecology
DX: Z12.31 Encounter for screening mammogram for malignant neoplasm of breast (principal)
CPT/HCPCS: 77063; 77067

== ENCOUNTER → 2024-02-06 | Outpatient (CLI) | payer BC ==
--- NOTE | 2024-02-07 10:08 | MM ---
Reason for Exam: Screening (asymptomatic). Last mammogram was performed 1 year(s) and 6 month(s) ago. Patient History: Menarche at age 11. Patient has no children. Progesterone, starting at age 35 for 7 years. 2006, Benign Excisional Biopsy on the left side. Risk Values: Annamarie 5 year model risk: 1.5%. NCI Lifetime model risk: 13.4%. Prior Study Comparison: 03/27/2018 Bilateral Screening Mammogram, [facility]. 05/26/2021 Bilateral Screening Mammogram, [facility]. 07/26/2022 Bilateral MG 3D screening mammo w/cad, [facility]. Tissue Density: The breasts are heterogeneously dense, which may obscure small masses. Findings: Analyzed By CAD. There is no suspicious group of microcalcifications or new suspicious mass in either breast. Overall Assessment: Negative, BI-RAD 1 Management: Screening Mammogram of both breasts in 1 year. . Patient should continue monthly self-breast exams. A clinical breast exam by your physician is recommended on an annual basis. This exam should not preclude additional follow-up of suspicious palpable abnormalities. Note on Annamarie scores and lifetime risk: 1. A Annamarie score greater than 3% is considered moderate risk. If this is the case, consider specialist referral to assess eligibility for a risk reducing agent. 2. If overall lifetime risk for the development of breast cancer is 20% or higher, the patient may qualify for future screening with alternating mammogram and breast MRI. [facility], , 02/07/2024 10:05 AM. Electronically signed and approved by: Kota Menchaca M.D. Radiologis
== END | disposition home or self-care (01) ==
LOC: RADMAMWWP 16:02
PROVIDERS: ATTEND Obstetrics & Gynecology
DX: Z12.31 Encounter for screening mammogram for malignant neoplasm of breast (principal); R92.333 Mammographic heterogeneous density, bilateral breasts
CPT/HCPCS: 77063; 77067